=== PATIENT | male | born 2000 | race American Indian/Alaskan Native ===

== ENCOUNTER 2019-07-31 14:36 | Emergency (ER) | payer MEDICAID ==
--- NOTE | 2019-07-31 14:48 | Event Note ---
ED Screening Note Date of service: 07/31/19 Time: 14:42 ED Screening Note: This is a 19 y.o. M. that presents to the ER with laceration to forehead x 3. Patient states he was playing basketball when he was elbowed causing him to run into the basketball pole. Denies loc, vomiting Current marijuana Reports feeling dizzy and nauseous. This initial assessment/diagnostic orders/clinical plan/treatment(s) is/are subject to change based on patients health status, clinical progression and re- assessment by fellow clinical providers in the ED. Further treatment and workup at subsequent clinical providers discretion. Patient/guardian urged not to elope from the ED as their condition may be serious if not clinically assessed and managed. Initial orders include: CT of head
--- NOTE | 2019-07-31 16:32 | Cat Scan Report ---
CT head without contrast INDICATION : laceration to forehead, head injury. TECHNIQUE: Axial imaging performed from the skull apex through the skull base without the use of con trast. All CT scans at this location are performed using CT dose reduction for ALARA by means of aut omated exposure control. COMPARISON: None FINDINGS: Parenchyma: No acute intracranial hemorrhage or parenchymal abnormality. Ventricles: Ventricles are normal in size and appear symmetric. Soft tissues: There is a soft tissue laceration in the midline involving the forehead scalp with mil d surrounding soft tissue swelling. Bones: No acute osseous abnormality. Sinuses: Sinuses and mastoid air cells are clear. IMPRESSION: Forehead scalp laceration with mild surrounding soft tissue swelling. Nothing acute intra cranially. Signer Name: Ryan Hayes MD Signed: 07/31/2019 4:27 PM Workstation Name: [id number]
[2019-07-31] MEDS ORDERED: SODIUM CHLORIDE IRRI 500 ML 500 ML IR ONE (16:50)
--- NOTE | 2019-07-31 17:19 | Emergency Department Report ---
ED Head Trauma HPI - General Chief complaint: Head Injury Stated complaint: BASKETBALL INJURY/HEAD INJURY Time Seen by Provider: 07/31/19 14:42 Source: patient Mode of arrival: Ambulatory Limitations: No Limitations - History of Present Illness Initial comments: Patient is a 19-year-old male. Past medical history who was playing basketball today and hit the front of his head on the pole supporting the go. Patient states that there was no loss of consciousness but he does have a headache. Patient suffered a laceration to the forehead just lateral to the right eyebrow. Patient states he has been dizzy since this occurred. Patient denies alcohol use. Patient denies any neck pain pain of the torso or other extremities. She denies nausea vomiting. - Related Data Previous Rx's Medication Instructions Recorded Last Taken Type Ibuprofen [Motrin 800 MG tab] 800 mg PO Q8HR PRN #10 tablet 07/31/19 Unknown Rx Allergies/Adverse reactions: Allergies Allergy/AdvReac Type Severity Reaction Status Date / Time No Known Allergies Allergy Unverified 06/11/15 21:03 ED Review of Systems ROS: Stated complaint: BASKETBALL INJURY/HEAD INJURY Other details as noted in HPI Comment: All other systems reviewed and negative ED Past Medical Hx - Past Medical History Previous Medical History?: No - Surgical History Past Surgical History?: No - Social History Smoking Status: Current Every Day Smoker Substance Use Type: Marijuana - Medications Home Medications: Home Medications Medication Instructions Recorded Confirmed Last Taken Type Ibuprofen [Motrin 800 MG tab] 800 mg PO Q8HR PRN #10 tablet 07/31/19 Unknown Rx ED Physical Exam - General Limitations: No Limitations General appearance: alert, in no apparent distress - Head Head exam: Present: normocephalic. Absent: atraumatic (2.5 cm lac to the forhead, smaller 0.5cm lac ajacent to the right eye brow) - Eye Eye exam: Present: normal appearance, PERRL, EOMI - ENT ENT exam: Present: mucous membranes moist - Neck Neck exam: Present: normal inspection - Respiratory Respiratory exam: Present: normal lung sounds bilaterally. Absent: respiratory distress, wheezes, rales, rhonchi - Cardiovascular Cardiovascular Exam: Present: regular rate, normal rhythm. Absent: systolic murmur, diastolic murmur, rubs, gallop - GI/Abdominal GI/Abdominal exam: Present: soft, normal bowel sounds. Absent: distended, tenderness, guarding, rebound - Rectal Rectal exam: Present: deferred - Extremities Exam Extremities exam: Present: normal inspection - Back Exam Back exam: Present: normal inspection - Neurological Exam Neurological exam: Present: alert, oriented X3 - Psychiatric Psychiatric exam: Present: normal affect, normal mood - Skin Skin exam: Present: warm, dry, intact, normal color. Absent: rash ED Course Vital Signs 07/31/19 14:49 Temperature 99.2 F Pulse Rate 111 H Respiratory 18 Rate Blood Pressure 113/64 O2 Sat by Pulse 97 Oximetry - Laceration /Wound Repair Frontal Wound Location: face Wound Length (cm): 3 (total length) Wound's Depth, Shape: superficial Wound Explored: clean Irrigated w/ Saline (ccs): 200 Betadine Prep?: No Wound Repaired With: Dermabond - Radiology Data [facility] [address] [place] [address] Cat Scan Report Signed Patient: DARCI ROMERO III MR#: [id number] : 2000 Acct:[id number] Age/Sex: 19 / M ADM Date: 07/31/19 Loc: ED Attending Dr: Ordering Physician: CON WATKINS Date of Service: 07/31/19 Procedure(s): CT head/brain wo con Accession Number(s): [id number] cc: CON WATKINS CT head without contrast INDICATION : laceration to forehead, head injury. TECHNIQUE: Axial imaging performed from the skull apex through the skull base without the use of contrast. All CT scans at this location are performed using CT dose reduction for ALARA by means of automated exposure control. COMPARISON: None FINDINGS: Parenchyma: No acute intracranial hemorrhage or parenchymal abnormality. Ventricles: Ventricles are normal in size and appear symmetric. Soft tissues: There is a soft tissue laceration in the midline involving the forehead scalp with mild surrounding soft tissue swelling. Bones: No acute osseous abnormality. Sinuses: Sinuses and mastoid air cells are clear. IMPRESSION: Forehead scalp laceration with mild surrounding soft tissue swelling. Nothing acute intracranially. Signer Name: Ryan Hayes MD Signed: 07/31/2019 4:27 PM Workstation Name: [id number] Transcribed By: RANDALL Dictated By: Ryan Hayes MD Electronically Authenticated By: Ryan Hayes MD Signed Date/Time: 07/31/19 1561 Critical care attestation.: If time is entered above; I have spent that time in minutes in the direct care of this critically ill patient, excluding procedure time. ED Disposition Clinical Impression: Laceration Concussion Qualifiers: Encounter type: initial encounter Loss of consciousness presence/duration: without LOC Qualified Code(s): S06.0X0A - Concussion without loss of consciousness, initial encounter Disposition: DC-01 TO HOME OR SELFCARE Is pt being admited?: No Does the pt Need Aspirin: No Condition: Stable Instructions: Concussion (ED), Skin Adhesive Care (ED) Referrals: ALTHEA VILLALBA MD [Referring] - 3-5 Days Time of Disposition: 17:22
[2019-07-31 17:27] VITALS: BP 96/65
== END 2019-07-31 18:00 | disposition home or self-care (01) ==
LOC: ED 14:36
DX: S06.0X0A Concussion without loss of consciousness, initial encounter (principal); S01.111A Laceration without foreign body of right eyelid and periocular area, initial encounter; F17.200 Nicotine dependence, unspecified, uncomplicated; F12.10 Cannabis abuse, uncomplicated; Z79.1 Long term (current) use of non-steroidal anti-inflammatories (NSAID); W21.05XA Struck by basketball, initial encounter; Y93.67 Activity, basketball; Y92.39 Other specified sports and athletic area as the place of occurrence of the external cause; Y99.8 Other external cause status
CPT/HCPCS: 70450